=== PATIENT | female | born 1980 | race African-American/Black ===

== ENCOUNTER 2020-05-02 01:26 | Emergency (ER) | payer BC ==
[~2020-05-02] VITALS: Ht 170.2 cm; Wt 79.4 kg
[2020-05-02] MEDS ORDERED: KETO10TA2 PO (03:42)
== END 2020-05-02 04:18 | disposition home or self-care (01) ==
LOC: ER 01:26
DX: M94.0 Chondrocostal junction syndrome [Tietze] (principal); R07.89 Other chest pain